=== PATIENT | male | born 1955 | race Caucasian/White ===

== ENCOUNTER 2017-06-01 21:44 | Emergency (ER) | payer MEDICARE, BC ==
[2017-06-01] MEDS ORDERED: LIDOCAINE 2%/EPI MPF (SDV) 20 ML VIAL INJ (23:21)
[2017-06-02] MEDS ORDERED: LIDOCAINE 2% (MDV) 20 ML INJ INJ
[2017-06-02] MEDS: ACETAMINOPHEN 325 MG TAB PO (00:14)
[2017-06-02] MEDS: DIPHTH/TET/ACEL PERTUSS (ADULT) 0.5 ML VIAL IM (00:15)
== END 2017-06-02 00:45 | disposition home or self-care (01) ==
LOC: FTE 06-02 00:45
DX: S81.811A Laceration without foreign body, right lower leg, initial encounter (principal); I10 Essential (primary) hypertension; E11.9 Type 2 diabetes mellitus without complications; W26.8XXA Contact with other sharp object(s), not elsewhere classified, initial encounter; Y92.9 Unspecified place or not applicable; Z79.4 Long term (current) use of insulin; Z79.82 Long term (current) use of aspirin; Z23 Encounter for immunization
CPT/HCPCS: 12001; 90471; 90715; 99283-25